=== PATIENT | female | born 2000 | race Caucasian/White ===

== ENCOUNTER 2020-07-10 08:13 | Outpatient (REF) | payer BC, SELFPAY | END 2020-07-10 08:14 | disposition home or self-care (01) | LOC: HO.LAB 08:13 | PROVIDERS: Visit Provider Internal Medicine | DX: Z20.828 Contact with and (suspected) exposure to other viral communicable diseases (principal) | CPT/HCPCS: C9803; U0003 ==

== ENCOUNTER 2021-09-14 12:54 | Outpatient (REF) | payer OTHER, SELFPAY ==
[2021-09-14 13:24] LABS: Binax Internal Control QC Valid; Binax Now Covid-19 Ag Negative (Negative); Binax Performed by: HO.BONILM
== END 2021-09-14 12:55 | disposition home or self-care (01) ==
LOC: HO.HMGCLDS 12:54
PROVIDERS: Visit Provider Physician Assistant
DX: Z13.89 Encounter for screening for other disorder (principal)